=== PATIENT | female | born 1975 | race Hispanic/Latino ===

== ENCOUNTER → 2017-07-08 | Outpatient (CLI) | payer BC ==
[~2017-07-08] MED LIST: ATENOLOL50 MG PO; ATIVAN0.5 MG PO; LEVAQUIN500 MG PO; TYLENOL WITH C1 EACH PO; ULTRAM 50MG50 MG PO
== END ==
LOC: MAMMO 14:45
PROVIDERS: ATTEND Internal Medicine
DX: Z12.31 Encounter for screening mammogram for malignant neoplasm of breast (principal)
CPT/HCPCS: G0202

== ENCOUNTER → 2017-07-27 | Outpatient (CLI) | payer BC ==
--- NOTE | 2017-07-28 08:15 | Diagnostic Imaging Report ---
#[id number] - USBRELIMLT ULTRASOUND OF THE LEFT BREAST : 07/27/2017 No prior exams were available for comparison. Focused color flow and real-time ultrasound were performed on the left breast over the palpable abnormality. At the 5 o'clock position 1 cm from the nipple there is a benign simple cyst measuring 2.6 x 1.9 x 2.3 cm. IMPRESSION: BENIGN There is no sonographic evidence of malignancy. A 1 year screening mammogram is recommended. Orlando Mcleod Jr., D.O. cw/:07/27/2017 14:42:08 Pitch Flaker: DEMETRIUS DAS, [facility] letter sent: Normal Exam Ultrasound BI-RADS: 2 Benign
== END ==
LOC: US 12:51
PROVIDERS: ATTEND Internal Medicine
DX: N60.02 Solitary cyst of left breast (principal)

== ENCOUNTER 2017-10-23 15:42 | Emergency (ER) | payer BC ==
[~2017-10-23] VITALS: Ht 157.5 cm; Wt 49.9 kg
--- OUTSIDE RECORDS SUMMARY | 2017-10-23 15:46 | XMS REPORT ---
Author [facility] Address Unknown Phone Unavailable Care Team Providers Care Electric Motor Tester Assembler Name Role Phone LYDIA CRUZ Unavailable Unavailable CEE RICKS Unavailable Unavailable Problems This patient has no known problems. Allergies, Adverse Reactions, Alerts This patient has no known allergies or adverse reactions. Medications This patient has no known medications. Results Test Description Test Time Test Comments Text Results Atomic Results Result Comments US BREAST LIMITED LEFT [place] [address] Patient Name: MENA OSMAN MR #: [id number] : 1975 Age/Sex: 41/F Req #: [id number] [facility] Physician: Ordered by: LYDIA CRUZ MD Report #: [id number] Location: Room/Bed: _ Procedure: [id number] US/US BREAST LIMITED LEFT Exam Date: Exam Time: REPORT STATUS: Signed #[id number] - USBRELIMLT ULTRASOUND OF THE LEFT BREAST : 07/27/2017 No prior exams were available for comparison. Focused color flow and real-time ultrasound were performed on the left breast over the palpable abnormality. At the 5 o' clock position 1 cm from the nipple there is a benign simple cyst measuring 2.6 x 1.9 x 2.3 cm. IMPRESSION: BENIGN There is no sonographic evidence of malignancy. A 1 year screening mammogram is recommended. Damaris Mcleod Jr., D.O. cw/:07/27/2017 14:42:[address] Production Manager: DEMETRIUS BECERRA RT, [facility] letter sent: Normal Exam Ultrasound BI-RADS: 2 Benign Dictated By: DAMARSI MCLEOD DO 1442 Transcribed By: RHIANNON on 07/27/17 1442 COPY TO: LYDIA CRUZ MD MAMMOGRAPHY DIGITAL SCR BILAT [place] [address] Patient Name: MENA OSMAN MR #: [id number] : 1975 Age/Sex: 41/F Req #: [id number] Adm Physician: Ordered by: LYDIA CRUZ MD Report #: [id number] Location: MAMMO Room/Bed: ____ Procedure: [id number] MG/MAMMOGRAPHY DIGITAL SCR BILAT Exam Date: Exam Time: 1500 REPORT STATUS: Signed #[id number] - [id number] #BILATERAL DIGITAL SCREENING MAMMOGRAM WITH CAD: CLINICAL: Routine screening. Comparison is made to exams dated : 02/19/2014 mammogram and 02/01/2014 mammogram - [facility]. Current study contains 4 films. The tissue of both breasts is extremely dense, which lowers the sensitivity of mammography. Current study was also evaluated with a Computer Aided Detection (CAD) system. There is a 2.7 cm mass in the left breast at 5 o'clock anterior depth. Stable calcification in the right breast. No other significant masses, calcifications, or other findings are seen in either breast. IMPRESSION: INCOMPLETE: NEEDS ADDITIONAL IMAGING EVALUATION The 2.7 cm mass in the left breast most likely is a cyst but is indeterminate. An ultrasound is recommended. The patient will be contacted by the Mammography Department to schedule this appointment. Damaris Mcleod Jr., D.O. cw/: 12:22:[address] Production Manager: Heydi PIERRE (R)), [facility] letter sent: Additional Imaging Needed Mammogram BI-RADS: 0 Indeterminate Dictated By: DAMARIS MCLEOD DO 1222 Transcribed By: RHIANNON on 07/18/17 1222 COPY TO: LYDIA CRUZ MD CT ABDOMEN/PELVIS W [place] [address] Patient Name: MENA OSMAN MR #: [id number] : 1975 Age/Sex: 41/F Req # : [id number] Adm Physician: Ordered by: CEE RICKS MD Report # : [id number] Location: ER Room/Bed: Procedure: [id number] CT/CT ABDOMEN/PELVIS W Exam Date: 05/17/17 Exam Time: 0639 REPORT STATUS: Signed PROCEDURE: CT ABDOMEN AND PELVIS WITH CONTRAST TECHNIQUE: The abdomen and pelvis were scanned utilizing a multidetector helical scanner from the diaphragm to the lesser trochanter after the IV administration of 100 cc of Isovue 370 and the oral administration of water. Coronal and sagittal multiplanar reformations were obtained. COMPARISON: None. INDICATIONS: ABDOMINAL PAIN, NAUSEA AND VOMITING FINDINGS: LOWER THORAX: Partially visualized 2.7 cm low- attenuation ovoid lesion in the left breast, average internal attenuation 0- 5 Hounsfield units. Lung bases are unremarkable.. HEPATOBILIARY: Hepatic dome is incompletely imaged. Visualized portions of the liver show no focal hepatic lesion or intrahepatic biliary dilatation. The gallbladder is unremarkable. SPLEEN: No splenomegaly. PANCREAS: No focal masses or ductal dilatation. ADRENALS: No adrenal nodules. KIDNEYS/URETERS: No hydronephrosis, stones, or solid mass lesions. PELVIC ORGANS/BLADDER: The urinary bladder is unremarkable. The uterus is anteflexed and appears normal. No adnexal mass. PERITONEUM / RETROPERITONEUM: Trace intermediate attenuation free pelvic fluid, average attenuation 15-25 Hounsfield units. LYMPH NODES: No pelvic sidewall, retroperitoneal, or mesenteric lymphadenopathy. VESSELS: The abdominal aorta, major branch vessels, and iliac arterial systems are patent without aneurysmal dilatation. Incidental note of a circumaortic left renal vein. Portal vein, splenic vein, and central superior mesenteric vein are patent. GI TRACT: The large bowel is collapsed from the level of the splenic flexure through the rectum and is poorly evaluated. Proximal segments of large bowel show no evidence of distention or wall thickening. The appendix is dilated, measuring 1.2 cm in caliber, with appendicoliths suspected on coronal image 32 and 38. There is enhancement of the appendiceal wall and minimal adjacent fat stranding. There is no small bowel dilatation to suggest obstruction. BONES AND SOFT TISSUES: No focal soft tissue abnormalities. No osseous destructive lesions. IMPRESSION: Acute appendicitis without evidence of perforation or drainable fluid collection. Adjacent free pelvic fluid may be reactive or physiologic in a female patient of this age. Low- attenuation ovoid lesion in the left breast may represent a cyst. Correlation with mammography and dedicated breast ultrasound is suggested. Finding of acute appendicitis was discussed by telephone with Dr. Prado of the emergency center at 7:20 AM 05/17/2017. Dictated by: Lázaro Jon M.D. on 05/17/2017 at 7:28 Electronically approved by: Lázaro Jon M.D. on 05/17/2017 at 7:28 Dictated By: LÁZARO JON MD 7 Transcribed By: OSORIO on 05/17/17727 COPY TO: CEE RICKS MD
--- NOTE | 2017-10-23 16:27 | Diagnostic Imaging Report ---
EXAM: KNEE RIGHT THREE VIEWS DATE: 10/23/2017 3:44 PM INDICATION: \S\FALL \[id number] \S\1600 COMPARISON: None FINDINGS: No fracture, subluxation, or osseous lesion. Trace joint effusion. IMPRESSION: No acute osseous findings. Signed by: Dr. Gavin Whitaker MD on 10/23/2017 4:23 PM
[2017-10-23] MEDS ORDERED: ACETAMINOPHEN 325 MG TAB PO ONE (16:45)
== END 2017-10-23 17:23 | disposition home or self-care (01) ==
LOC: ER 16:52
DX: S83.411A Sprain of medial collateral ligament of right knee, initial encounter (principal); S80.01XA Contusion of right knee, initial encounter; W01.0XXA Fall on same level from slipping, tripping and stumbling without subsequent striking against object, initial encounter; Y99.0 Civilian activity done for income or pay; E07.9 Disorder of thyroid, unspecified
CPT/HCPCS: 99283

== ENCOUNTER → 2017-11-03 | Outpatient (CLI) | payer BC, OTHER ==
--- NOTE | 2017-11-04 07:51 | Diagnostic Imaging Report ---
TECHNIQUE: Magnetic resonance imaging of the RIGHT KNEE was performed WITHOUT injected contrast. HISTORY: Right knee pain COMPARISON: None available. FINDINGS: LIGAMENTS AND TENDONS: ACL: Intact PCL: Intact Collateral ligaments: Intact Iliotibial band: Unremarkable Popliteal tendon: Intact Extensor mechanism: Intact JOINT: Menisci: Medial: Horizontal tear of the body and posterior horn. Lateral: Intact Articular Cartilage: Medial Compartment: No focal defect. Lateral Compartment: No focal defect. Patellofemoral Compartment: No focal defect. Joint Fluid: The amount of fluid within the joint is within physiologic limits. BONE: No focal or infiltrative bone marrow replacing abnormality. No acute fracture. SOFT TISSUES: Otherwise, unremarkable. IMPRESSION: Medial meniscus horizontal tear body and posterior horn. Signed by: Dr. Erich Ballesteros M.D. on 11/04/2017 7:47 AM
== END ==
LOC: MRI 16:21
PROVIDERS: ATTEND Family Medicine
DX: S83.91XA Sprain of unspecified site of right knee, initial encounter (principal); S80.01XA Contusion of right knee, initial encounter

== ENCOUNTER → 2018-11-07 | Outpatient (CLI) | payer OTHER ==
--- NOTE | 2018-11-07 11:18 | Diagnostic Imaging Report ---
MRI SPINE THORACIC WO HISTORY: Low back pain COMPARISON: None. TECHNIQUE: Sagittal T1, sagittal T2, sagittal STIR, and axial T2 weighted MR images of the thoracic spine were obtained. DISCUSSION: Thoracic kyphosis is preserved. There is no significant scoliosis or subluxation. Approximately 1.4 cm nodular T1 hyperintense lesion in the T11 vertebral body is likely a benign hemangioma. A few additional smaller T1 hyperintense hemangiomas are seen in the T2, T3, and L2 vertebral bodies. No vertebral compression deformities are seen. The thoracic cord is normal in signal and morphology. The conus terminates at L1. The visualized upper cauda equina is unremarkable. The paravertebral and paraspinal soft tissues are unremarkable. The thoracic discs are preserved. No disc herniations. There is no significant canal or foraminal stenosis. Approximately 0.8 cm T2 hyperintense right thyroid nodule is partially visualized. IMPRESSION: 1. No acute osseous abnormality. 2. No disc herniations. No significant canal or foraminal stenosis. No cord signal abnormalities. 3. Few incidental scattered vertebral body hemangiomas, most prominent at T11. 4. Partially visualized 0.8 cm T2 hyperintense right thyroid nodule can be further evaluated with thyroid ultrasound. Signed by: Dr. Alex Parada M.D. on 11/07/2018 11:14 AM
== END ==
LOC: MRI 08:39
PROVIDERS: ATTEND Physical Medicine & Rehabilitation
DX: M54.6 Pain in thoracic spine (principal)
CPT/HCPCS: 72146